=== PATIENT | female | born 1985 | race Caucasian/White ===

== ENCOUNTER 2019-07-15 15:48 | Emergency (ER) | payer MEDICAID ==
[2019-07-15] MEDS ORDERED: OXYCODONE-ACETAMINOPHEN 5-325 MG TABLET PO ONE (15:56)
[2019-07-15] MEDS ORDERED: DIPH/PERTUSS(ACELL)/TETANUS VAC/PF 0.5 ML SYR (>=10YO) IM ONE (15:56)
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
[2019-07-15 18:20] VITALS: BP 150/96
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
== END 2019-07-15 18:40 | disposition home or self-care (01) ==
LOC: ER 15:48
DX: T20.20XA Burn of second degree of head, face, and neck, unspecified site, initial encounter (principal); T31.0 Burns involving less than 10% of body surface; R51 Headache; X10.2XXA Contact with fats and cooking oils, initial encounter; F17.210 Nicotine dependence, cigarettes, uncomplicated
CPT/HCPCS: 90471; 90715; 99283